=== PATIENT | female | born 1950 | race Caucasian/White ===

== ENCOUNTER → 2020-02-06 | Outpatient (CLI) | payer MEDICARE ==
[~2020-02-06] MED LIST: AMLO-150 PO; ASPI-496 PO; CALC600T4 PO; CYAN50003 PO; ERGO500017 PO; FLUT9.9S NAS; GLUC-149 PO; KRIL1CAP22 PO; LEVO100T PO; LUTE20CA2 PO; MV-M1TAB19 PO; [UNRECOGNIZED DRUG - OTHER] PO
[2020-02-06 14:23] LABS: BASOPHILS # (AUTO) 0.02 x10^3/uL (0-0.1); BASOPHILS % (AUTO) 0 % (0-1); EOSINOPHILS # (AUTO) 0.13 x10^3/uL (0-0.4); EOSINOPHILS % (AUTO) 2 % (1-7); LYMPHOCYTES # (AUTO) 1.22 x10^3/uL (1-3.4); LYMPHOCYTES % (AUTO) 21 % (22-44); MD NO; MEAN CORPUSCULAR HEMOGLOBIN 31.1 pg (27.0-34.8); MEAN CORPUSCULAR HGB CONC 33.2 g/dL (32.4-35.8); MEAN CORPUSCULAR VOLUME 93.7 fL (80-100); MONOCYTES # (AUTO) 0.45 x10^3/uL (0.2-0.8); MONOCYTES % (AUTO) 8 % (2-9); NEUTROPHILS # (AUTO) 4.07 x10^3/uL (1.8-6.8); NEUTROPHILS % (AUTO) 69 % (42-75); PLATELET COUNT 228 x10^3/uL (130-400); RED BLOOD COUNT 4.43 x10^6/uL (3.82-5.3); RED CELL DISTRIBUTION WIDTH 12.6 % (9.6-15.2)
[2020-02-06 14:27] LABS: ANION GAP 5 mmol/L (5-15); CALCIUM 8.7 mg/dL (8.5-10.1); CHLORIDE 109 mmol/L (98-107); CREATININE 1.07 mg/dL (0.55-1.02)
== END | disposition home or self-care (01) ==
LOC: STAR 12:38
PROVIDERS: ATTEND Orthopaedic Surgery
DX: Z01.818 Encounter for other preprocedural examination (principal); M17.11 Unilateral primary osteoarthritis, right knee; I25.2 Old myocardial infarction
CPT/HCPCS: 36415; 80048; 85025; 87081; 93005

== ENCOUNTER 2020-02-12 10:59 | Observation (INO) | payer MEDICARE ==
[~2020-02-12] VITALS: Ht 180.3 cm; Wt 95.9 kg
[~2020-02-12 10:59] MED LIST changes: +EPINEPHRINE 1 MG/ML, 1ML ONE; +KETOROLAC 60 MG/2 ML ONE; +ROPIvacaine/PF 0.2%, 20 ML ONE; +SODIUM CHLORIDE 0.9% 50 ML ONE; +TRANEXAMIC ACID 100 MG/ML, 10ML ONE
[2020-02-12] MEDS ORDERED: LACTATED RINGERS 1,000 ML IV SCH (11:22)
[2020-02-12 11:25] VITALS: BP 155/80
[2020-02-12] MEDS ORDERED: CHLORHEXIDINE 15 ML UDC MM ONE (11:30)
[2020-02-12] MEDS ORDERED: OXYcodone 5 MG/5 ML ORAL.SOL UDC PO PRN (12:30)
[2020-02-12] MEDS ORDERED: PROMETHAZINE 25 MG/ML, 1ML IVPush PRN (12:30)
[2020-02-12] MEDS ORDERED: FAMOTIDINE 20 MG TABLET ONE (12:37)
[2020-02-12] MEDS ORDERED: ACETAMINOPHEN 500 MG TABLET ONE (12:39)
[2020-02-12] MEDS ORDERED: OXYcodone IR 5MG TABLET ONE (12:39)
[2020-02-12] MEDS ORDERED: TAMSULOSIN 0.4 MG CAP.ER.24H ONE (12:40)
[2020-02-12] MEDS ORDERED: FENTANYL PF 250 MCG/5ML ONE (12:53)
[2020-02-12] MEDS ORDERED: MIDAZOLAM 1 MG/ML, 2ML ONE (12:53)
[2020-02-12] MEDS ORDERED: OXYcodone IR 5MG TABLET PO ONE (13:00)
[2020-02-12] MEDS ORDERED: TAMSULOSIN 0.4 MG CAP.ER.24H PO ONE (13:00)
[2020-02-12] MEDS ORDERED: ACETAMINOPHEN 500 MG TABLET PO ONE (13:00)
[2020-02-12] MEDS ORDERED: FAMOTIDINE 20 MG TABLET PO ONE (13:00)
[2020-02-12] MEDS ORDERED: CLINDAMYCIN 150 MG/ML, 6ML ONE (13:54)
[2020-02-12] MEDS ORDERED: DEXAMETHASONE 4 MG/ML, 1ML ONE ×2 (14:10)
[2020-02-12] MEDS ORDERED: ONDANSETRON 2MG/ML, 2ML ONE (14:10)
[2020-02-12] MEDS ORDERED: SUCCINYLCHOLINE 20 MG/ML, 10ML ONE (14:10)
[2020-02-12] MEDS ORDERED: PROPOFOL 10 MG/ML, 20ML ONE ×2 (14:10)
[2020-02-12] MEDS ORDERED: ONDANSETRON 4 MG TABLET PO PRN (16:00)
[2020-02-12] MEDS ORDERED: SENNA/DOCUSATE TABLET PO PRN (16:00)
[2020-02-12] MEDS ORDERED: OXYcodone IR 5MG TABLET PO PRN (16:00)
[2020-02-12] MEDS ORDERED: DEXAMETHASONE 4 MG/ML, 1ML IVPush SCH (16:00)
[2020-02-12] MEDS ORDERED: DIPHENHYDRAMINE 25 MG CAPSULE PO PRN (16:00)
[2020-02-12] MEDS ORDERED: ERGOCALCIFEROL 50,000 UNIT CAPSULE PO SCH (16:00)
[2020-02-12] MEDS ORDERED: FENTANYL PF 100 MCG/2ML ONE (16:21)
[2020-02-12] MEDS ORDERED: OXYcodone 5 MG/5 ML ORAL.SOL UDC ONE (16:22)
[2020-02-12] MEDS: FENTANYL PF 100 MCG/2ML IV PRN ×2 (16:26→16:34)
[2020-02-12] MEDS ORDERED: HYDROmorphone 1 MG/ML, 1ML INJ ONE (16:40)
[2020-02-12] MEDS ORDERED: HYDROmorphone 1 MG/ML, 1ML INJ IVPush PRN (17:00)
[2020-02-12] MEDS ORDERED: TRANEXAMIC ACID 1,000 MG in SODIUM CHLORIDE 0.9% 100 ML IVPB ONE (17:00)
[2020-02-12] MEDS ORDERED: FLUTICASONE NASAL SPRAY 16GM NAS SCH (18:00)
[2020-02-12] MEDS ORDERED: FLUTICASONE NASAL SPRAY 16GM NAS PRN (18:00)
[2020-02-12 19:34] VITALS: BP 121/71
[2020-02-12] MEDS: LACTATED RINGERS 1,000 ML IV SCH (20:00)
[2020-02-12] MEDS: ASPIRIN 81 MG TABLET EC PO SCH (21:00)
[2020-02-12] MEDS: PREGABALIN 75 MG CAPSULE PO SCH (21:36)
[2020-02-12] MEDS: CLINDAMYCIN PMX 600MG/50ML 50 ML IVPB SCH (21:36)
[2020-02-12] MEDS: ACETAMINOPHEN 500 MG TABLET PO SCH (21:36)
[2020-02-12] MEDS: OXYcodone IR 5MG TABLET PO PRN (21:52)
[2020-02-13 01:08] VITALS: BP 130/74
[2020-02-13] MEDS: OXYcodone IR 5MG TABLET PO PRN ×3 (01:54→10:45)
[2020-02-13] MEDS: ACETAMINOPHEN 500 MG TABLET PO SCH ×2 (03:37→10:45)
[2020-02-13 04:00] VITALS: BP 129/73
[2020-02-13] MEDS: CLINDAMYCIN PMX 600MG/50ML 50 ML IVPB SCH (05:35)
[2020-02-13] MEDS: ASPIRIN 81 MG TABLET EC PO SCH (05:42)
[2020-02-13] MEDS ORDERED: LEVOTHYROXINE 100 MCG TABLET PO SCH (06:00)
[2020-02-13] MEDS: LACTATED RINGERS 1,000 ML IV SCH (08:03)
[2020-02-13 08:04] VITALS: BP 93/54
[2020-02-13] MEDS: PREGABALIN 75 MG CAPSULE PO SCH (08:15)
[2020-02-13] MEDS ORDERED: AMLODIPINE 5 MG TABLET PO SCH (09:00)
[2020-02-13 10:52] VITALS: BP 122/70
== END 2020-02-13 11:45 | disposition home or self-care (01) ==
LOC: OUT 10:59 → ORIP 15:46 → 4NE 17:30
PROVIDERS: ADMIT Orthopaedic Surgery; ATTEND Orthopaedic Surgery
DX: M17.11 Unilateral primary osteoarthritis, right knee (principal); G47.33 Obstructive sleep apnea (adult) (pediatric); I10 Essential (primary) hypertension; E03.9 Hypothyroidism, unspecified; K21.9 Gastro-esophageal reflux disease without esophagitis; Z79.82 Long term (current) use of aspirin; Z79.899 Other long term (current) drug therapy
CPT/HCPCS: 27447; 36415; 73560; 85018; 96365; 96366; 97110; 97161; C1713; C1776; G0378; J0171; J0330; J1100; J1170; J1885; J2250; J2405; J2704; J2795; J3010; J7120; S0077